=== PATIENT | male | born 1990 | race Hispanic/Latino ===

== ENCOUNTER 2017-05-31 12:24 | Emergency (ER) | payer OTHER ==
[2017-05-31] MEDS ORDERED: NAPROSYN500 MG PO (13:09)
[2017-05-31 13:19] VITALS: BP 145/83
== END 2017-05-31 13:26 | disposition home or self-care (01) | DRG 563 ==
LOC: ED 12:24
DX: S63.501A Unspecified sprain of right wrist, initial encounter (principal); V99.XXXA Unspecified transport accident, initial encounter; Y93.9 Activity, unspecified; Y92.9 Unspecified place or not applicable